=== PATIENT | male | born 1980 | race Caucasian/White ===

== ENCOUNTER → 2017-03-19 | Outpatient (CLI) | payer OTHER ==
--- NOTE | 2017-03-20 09:24 | REP ---
MAXILLOFACIAL CT WITHOUT CONTRAST: HISTORY: Chronic sinusitis. Minimal mucosal thickening is present in the left maxillary sinus. The remaining sinuses are clear. The ostiomeatal units are patent. The middle and inferior nasal turbinates are partially paradoxical. There is jose bullosa of the left middle nasal turbinate. There is minimal deviation of the nasal septum to the right. The cribriform plate, medial tyson of the orbits and optic canals are intact. The carotid canals form a segment of the posterolateral tyson of the sphenoid sinus. IMPRESSION: Sinus mucosal thickening as described above. Signed by Tod Meadows MD 03/20/2017 09:39 A
== END ==
LOC: M RAD 18:24
PROVIDERS: ATTEND Allergy & Immunology
DX: J32.9 Chronic sinusitis, unspecified (principal)